=== PATIENT | female | born 1940 ===

== ENCOUNTER → 2017-12-09 14:00 | Outpatient (REF) | payer OTHER, MEDICAID, SELFPAY ==
[2017-12-09 14:13] LABS: INR 2.2 (0.9-1.3); Prothrombin Time 23.8 SECONDS (10.1-12.7)
== END ==
LOC: LAB 14:00
PROVIDERS: Visit Provider Internal Medicine
DX: E11.9 Type 2 diabetes mellitus without complications (principal)
CPT/HCPCS: 83036; 85610

== ENCOUNTER → 2018-01-08 13:42 | Outpatient (REF) | payer OTHER, MEDICAID, SELFPAY ==
[2018-01-08 14:01] LABS: INR 2.2 (0.9-1.3); Prothrombin Time 24.2 SECONDS (10.1-12.7)
== END ==
LOC: LAB 13:42
PROVIDERS: Visit Provider Internal Medicine
DX: I48.0 Paroxysmal atrial fibrillation (principal)
CPT/HCPCS: 85610

== ENCOUNTER → 2018-02-10 13:18 | Outpatient (REF) | payer OTHER, MEDICAID, SELFPAY ==
[2018-02-10 13:43] LABS: INR 2.1 (0.9-1.3); Prothrombin Time 24.2 SECONDS (10.1-12.7)
== END ==
LOC: LAB 13:18
PROVIDERS: Visit Provider Internal Medicine
DX: Z79.01 Long term (current) use of anticoagulants (principal)
CPT/HCPCS: 85610

== ENCOUNTER → 2018-02-18 20:05 | Outpatient (REF) | payer OTHER, MEDICAID, SELFPAY ==
[2018-02-18 20:27] LABS: INR 2.6 (0.9-1.3); Prothrombin Time 30.3 SECONDS (10.1-12.7)
== END ==
LOC: LAB 20:05
PROVIDERS: Visit Provider Internal Medicine
DX: Z79.01 Long term (current) use of anticoagulants (principal)
CPT/HCPCS: 36415; 85610

== ENCOUNTER → 2018-03-19 13:09 | Outpatient (REF) | payer OTHER, MEDICAID, SELFPAY ==
[2018-03-19 13:52] LABS: INR 1.8 (0.9-1.3); Prothrombin Time 20.3 SECONDS (10.1-12.7)
== END ==
LOC: LAB 13:09
PROVIDERS: Visit Provider Internal Medicine
DX: Z51.81 Encounter for therapeutic drug level monitoring (principal); E55.9 Vitamin D deficiency, unspecified; I10 Essential (primary) hypertension
CPT/HCPCS: 36415; 85610

== ENCOUNTER → 2018-04-02 13:42 | Outpatient (REF) | payer OTHER, MEDICAID, SELFPAY ==
[2018-04-02 14:40] LABS: INR 2.5 (0.9-1.3); Prothrombin Time 29.3 SECONDS (10.1-12.7)
== END ==
LOC: LAB 13:42
PROVIDERS: Visit Provider Internal Medicine
DX: R79.1 Abnormal coagulation profile (principal)
CPT/HCPCS: 36415; 85610

== ENCOUNTER → 2018-04-30 15:43 | Outpatient (REF) | payer OTHER, MEDICAID, SELFPAY ==
[2018-04-30 13:07] LABS: Uric Acid 6.6 mg/dL (2.5-6.2)
[2018-04-30 13:11] LABS: Hemoglobin A1C% w Est Avg Glu 6.9 % (4.0-6.0)
[2018-04-30 13:17] LABS: INR 1.7 (0.9-1.3)
== END ==
LOC: LAB 15:43
PROVIDERS: Visit Provider Internal Medicine
DX: R79.1 Abnormal coagulation profile (principal); E11.9 Type 2 diabetes mellitus without complications; M10.9 Gout, unspecified
CPT/HCPCS: 36415; 83036; 84550; 85610

== ENCOUNTER → 2018-05-14 13:22 | Outpatient (REF) | payer OTHER, MEDICAID, SELFPAY ==
[2018-05-14 13:48] LABS: INR 1.9 (0.9-1.3); Prothrombin Time 21.8 SECONDS (10.1-12.7)
== END ==
LOC: LAB 13:22
PROVIDERS: Visit Provider Internal Medicine
DX: Z51.81 Encounter for therapeutic drug level monitoring (principal)
CPT/HCPCS: 36415; 85610

== ENCOUNTER → 2018-07-07 13:37 | Outpatient (ROUT) | payer OTHER, MEDICAID, SELFPAY ==
[2018-07-07 14:00] LABS: INR 1.7 (0.9-1.3); Prothrombin Time 19.6 SECONDS (10.1-12.7)
== END ==
PROVIDERS: Visit Provider Internal Medicine
DX: Z51.81 Encounter for therapeutic drug level monitoring (principal)
CPT/HCPCS: 36415; 85610

== ENCOUNTER → 2018-07-21 14:08 | Outpatient (ROUT) | payer OTHER, MEDICAID, SELFPAY ==
[2018-07-21 14:49] LABS: INR 2.7 (0.9-1.3); Prothrombin Time 31.3 SECONDS (10.1-12.7)
== END ==
PROVIDERS: Visit Provider Internal Medicine
DX: Z51.81 Encounter for therapeutic drug level monitoring (principal)
CPT/HCPCS: 85610

== ENCOUNTER → 2018-07-28 13:32 | Outpatient (ROUT) | payer OTHER, MEDICAID, SELFPAY ==
[2018-07-28 16:04] LABS: Cholesterol 68 mg/dL (140-199); HDL Cholesterol 33 mg/dL (40-60); LDL Cholesterol Calculated 19 mg/dL (<100); Triglycerides 80 mg/dL (35-150)
== END ==
PROVIDERS: Visit Provider Internal Medicine
DX: E78.5 Hyperlipidemia, unspecified (principal); E11.9 Type 2 diabetes mellitus without complications
CPT/HCPCS: 36415; 80061; 83036